=== PATIENT | male | born 1960 | race African-American/Black ===

== ENCOUNTER 2019-10-02 03:02 | Emergency (ER) | payer MEDICAID ==
[~2019-10-02] VITALS: Ht 175.3 cm; Wt 84.0 kg
[2019-10-02 03:51] VITALS: BP 138/74
[2019-10-02 05:18] LABS: CHLORIDE 108 mEq/L (98-107)
[2019-10-02 05:41] LABS: BASOPHILS % 0.5 % (0.0-2.0); EOSINOPHILS % 0.5 % (0.0-5.0); HEMATOCRIT. 40.2 % (42.0-52.0); HEMOGLOBIN. 14.5 g/dL (14.0-18.0); LYMPHOCYTES % 17.9 % (20.0-50.0); MEAN CORPUSCULAR VOLUME 91.5 fL (80.0-94.0); MEAN PLATELET VOLUME 8.8 fl (7.4-10.4); MONOCYTES % 6.8 % (2.0-8.0); NEUTROPHILS % 74.3 % (40.0-76.0); PLATELET 271 x1000/uL (130-400); RED BLOOD CELL COUNT 4.39 mill/uL (4.7-6.1); RED CELL DISTRIBUTION WIDTH 14.7 % (11.6-14.6)
== END 2019-10-02 06:43 | disposition home or self-care (01) ==
LOC: ER 03:02
DX: R10.9 Unspecified abdominal pain (principal)
CPT/HCPCS: 36415; 71045; 80053; 85025; 93005; 99284

== ENCOUNTER 2019-10-02 14:39 | Emergency (ER) | payer MEDICAID ==
[~2019-10-02] VITALS: Ht 172.7 cm; Wt 75.0 kg
[2019-10-02 14:47] VITALS: BP 123/70
== END 2019-10-02 17:06 | disposition left against medical advice (07) ==
LOC: ER 14:50
DX: R10.9 Unspecified abdominal pain (principal); Z53.21 Procedure and treatment not carried out due to patient leaving prior to being seen by health care provider